=== PATIENT | male | born 1970 | race Caucasian/White ===

== ENCOUNTER 2016-12-01 12:23 | Emergency (ER) | payer MEDICAID ==
[~2016-12-01] VITALS: Ht 177.8 cm; Wt 72.6 kg
[2016-12-01 12:37] VITALS: BP 134/91
== END 2016-12-01 14:51 | disposition left against medical advice (07) ==
LOC: ER 12:25
DX: R10.9 Unspecified abdominal pain (principal); R11.2 Nausea with vomiting, unspecified; Z53.21 Procedure and treatment not carried out due to patient leaving prior to being seen by health care provider

== ENCOUNTER 2017-03-27 08:03 | Emergency (ER) | payer MEDICAID ==
[~2017-03-27] VITALS: Ht 175.3 cm; Wt 90.7 kg
[2017-03-27] MEDS ORDERED: SODIUM CHLORIDE 0.9% 1,000 ML IV ONE (08:17)
[2017-03-27] MEDS ORDERED: CLINDAMYCIN 900MG IV 50 ML IV ONE (08:30)
[2017-03-27 08:39] LABS: Basophils # (auto) 0 uL; Basophils % (auto) 0.1 % (0.0-2.0); Eosinophils # (auto) 0 uL; Eosinophils % (auto) 0.2 % (0.0-7.0); Hematocrit 40.2 % (41.0-53.0); Hemoglobin 13.5 g/dL (13.5-17.5); Lymphocytes # (auto) 0.9 uL; Lymphocytes % (auto) 3.8 % (10.0-50.0); Mean Corpuscular Hemoglobin 30.7 pg (28.0-32.0); Mean Corpuscular Hgb Conc. 33.5 g/dL (32.0-36.0); Mean Corpuscular Volume 91.7 fL (80.0-100.0); Mean Platelet Volume 7.7 fL (6.9-10.8); Monocytes # (auto) 1.3 uL; Monocytes % (auto) 5.7 % (0.0-12.0); Neutrophils # (auto) 21.3 uL; Neutrophils % (auto) 90.2 % (37.0-80.0); Nucleated Red Blood Cells % 0.1 %; Platelet Count (auto) 318 10^3/uL (140-450); Red Cell Distribution Width 15.4 % (11.8-14.3); White Blood Cell 23.6 10^3/uL (4.4-10.8)
[2017-03-27 08:40] VITALS: BP 105/54
[2017-03-27] MEDS: SODIUM CHLORIDE 0.9% 1,000 ML IV ONE (08:43)
[2017-03-27] MEDS: KETOROLAC TROMETH 30 MG/ML 1ML VIAL IV ONE (08:43)
[2017-03-27] MEDS: cefTRIAXone 1GM/50ML D5W 50 ML IV ONE (08:43)
[2017-03-27 09:01] LABS: BUN/Creatinine Ratio 24.1; Bilirubin, Total 1.2 mg/dL (0.2-1.0); Potassium 3.3 mmol/L (3.5-5.1); Total Protein 8.6 g/dL (6.4-8.2)
== END 2017-03-27 08:45 | disposition left against medical advice (07) ==
LOC: ER 08:03 → EDBD 08:03 → ER 08:45
DX: M54.5 Low back pain (principal); G89.29 Other chronic pain; L03.113 Cellulitis of right upper limb; Z59.0 Homelessness; F17.210 Nicotine dependence, cigarettes, uncomplicated
CPT/HCPCS: 36415; 80053; 85025; 87040; 87077; 87147; 87186; 96365; 96375; J0696; J1885; J3490

== ENCOUNTER 2017-06-02 12:01 | Emergency (ER) | payer MEDICAID ==
[~2017-06-02] VITALS: Ht 175.3 cm; Wt 67.1 kg
[2017-06-02 13:26] VITALS: BP 124/77
[2017-06-02] MEDS ORDERED: KETOROLAC TROMETH 60MG/2ML VIAL IM ONE (13:45)
== END 2017-06-02 14:20 | disposition home or self-care (01) ==
LOC: EDBD 12:01 → ER 12:01
DX: S80.02XA Contusion of left knee, initial encounter (principal); F17.210 Nicotine dependence, cigarettes, uncomplicated; W19.XXXA Unspecified fall, initial encounter; Y93.89 Activity, other specified; Y92.89 Other specified places as the place of occurrence of the external cause; Y99.8 Other external cause status; Z88.0 Allergy status to penicillin; Z88.1 Allergy status to other antibiotic agents
CPT/HCPCS: 96372; 99283; J1885

== ENCOUNTER 2017-06-20 21:15 | Emergency (ER) | payer MEDICAID ==
[~2017-06-20] VITALS: Ht 175.3 cm; Wt 74.8 kg
[2017-06-20 22:26] LABS: Albumin 2.1 g/dL (3.4-5.0); Calcium 8.2 mg/dL (8.5-10.1)
[2017-06-20 22:29] LABS: Bilirubin, Total 0.3 mg/dL (0.2-1.0); Total Protein 8.2 g/dL (6.4-8.2)
[2017-06-20 22:43] LABS: Potassium 2.6 mmol/L (3.5-5.1)
[2017-06-20 22:58] LABS: Eosinophils # (auto) 0 uL; Platelet Count (auto) 678 10^3/uL (140-450); White Blood Cell 19.4 10^3/uL (4.4-10.8)
[2017-06-20 23:00] LABS: Basophils # (auto) 0.1 uL; Basophils % (auto) 0.5 % (0.0-2.0); Eosinophils % (auto) 0.1 % (0.0-7.0); Hematocrit 30.2 % (41.0-53.0); Hemoglobin 10.1 g/dL (13.5-17.5); Lymphocytes % (auto) 5.4 % (10.0-50.0); Mean Corpuscular Hgb Conc. 33.5 g/dL (32.0-36.0); Mean Corpuscular Volume 83.4 fL (80.0-100.0); Monocytes # (auto) 1.4 uL; Monocytes % (auto) 7.3 % (0.0-12.0); Neutrophils # (auto) 16.8 uL; Neutrophils % (auto) 86.7 % (37.0-80.0); Red Blood Cells 3.62 10^6/uL (4.5-5.90)
[2017-06-20 23:19] LABS: Red Cell Distribution Width 21.6 % (11.8-14.3)
[2017-06-21] MEDS ORDERED: ACETAMINOPHEN 325 MG TAB PO ONE (03:15)
[2017-06-21] MEDS ORDERED: SODIUM CHLORIDE 0.9% 500 ML IV ONE (03:30)
[2017-06-21] MEDS ORDERED: SODIUM CHLORIDE 0.9% 1,000 ML IV ONE (03:45)
[2017-06-21] MEDS ORDERED: HYDROcodone-ACET 5/325MG TAB PO ONE (03:45)
[2017-06-21] MEDS ORDERED: POTASSIUM CHL 20 Meq TABLET PO ONE (04:00)
[2017-06-21] MEDS ORDERED: cefTRIAXone 1GM/10ml IVPUSH 10 ML IV ONE (07:15)
[2017-06-21] MEDS ORDERED: VANCOMYCIN 1GM/250ML 250 ML IV ONE (07:15)
[2017-06-21] MEDS ORDERED: HYDROmorphone HCL 2 MG/ML VL IV ONE (08:15)
[2017-06-21] MEDS ORDERED: ONDANSETRON HCL 4 MG/2 ML VIAL IV ONE (08:15)
[2017-06-21 10:20] LABS: Alcohol, Urine < 3.0 mg/dL (0-5); Amphetamine Screen, Urine POSITIVE (NEGATIVE); Barbiturate Scree,Urine NEGATIVE (NEGATIVE); Benzodiazephine Screen, Urine POSITIVE (NEGATIVE); Cannabinoid Screen, Urine NEGATIVE (NEGATIVE); Cocaine Screen, Urine NEGATIVE (NEGATIVE); Opiate Scree,Urine POSITIVE (NEGATIVE); Phencyclidine Screen, Urine NEGATIVE (NEGATIVE)
[2017-06-21 10:22] LABS: Urine Bacteria NONE SEEN /hpf (None Seen); Urine Blood 3+ /uL (Negative); Urine Budding Yeast FEW /hpf (None Seen); Urine Specific Gravity 1.017 (1.001-1.035); Urine WBC 29 /hpf (0 - 3)
[2017-06-21 12:08] VITALS: BP 148/97
== END 2017-06-21 13:15 | disposition left against medical advice (07) ==
LOC: EDBD 21:15 → ER 21:28
DX: M46.26 Osteomyelitis of vertebra, lumbar region (principal); M46.46 Discitis, unspecified, lumbar region; G89.29 Other chronic pain; F17.210 Nicotine dependence, cigarettes, uncomplicated; Z59.0 Homelessness; Z88.0 Allergy status to penicillin; Z88.1 Allergy status to other antibiotic agents
CPT/HCPCS: 36415; 71045; 72131; 80053; 80307; 81001; 85025; 87040; 87077; 87186; 96361; 96365; 96375; 99285; J1170; J2405; J3370; J7030

== ENCOUNTER 2017-10-24 19:58 | Emergency (ER) | payer MEDICAID ==
[~2017-10-24] VITALS: Ht 167.6 cm; Wt 68.0 kg
[2017-10-24 20:50] LABS: Monocytes # (auto) 0.9 uL
[2017-10-24 20:52] LABS: Basophils # (auto) 0.5 uL; Basophils % (auto) 4.5 % (0.0-2.0); Eosinophils # (auto) 0.4 uL; Eosinophils % (auto) 3.7 % (0.0-7.0); Hematocrit 26.9 % (41.0-53.0); Hemoglobin 8.8 g/dL (13.5-17.5); Lymphocytes # (auto) 2.9 uL; Mean Corpuscular Hemoglobin 24.9 pg (28.0-32.0); Mean Corpuscular Hgb Conc. 32.6 g/dL (32.0-36.0); Mean Corpuscular Volume 76.4 fL (80.0-100.0); Monocytes % (auto) 8.2 % (0.0-12.0); Neutrophils % (auto) 56.6 % (37.0-80.0); Nucleated Red Blood Cells % 0.1 %; Red Blood Cells 3.53 10^6/uL (4.5-5.90); White Blood Cell 10.6 10^3/uL (4.4-10.8)
[2017-10-24 21:00] LABS: Albumin 2.1 g/dL (3.4-5.0); BUN/Creatinine Ratio 15.5; Calcium 8.5 mg/dL (8.5-10.1)
[2017-10-24 21:05] LABS: Bilirubin, Total 0.1 mg/dL (0.2-1.0); Total Protein 9.5 g/dL (6.4-8.2)
[2017-10-24 21:10] LABS: Red Cell Distribution Width 22.1 % (11.8-14.3)
[2017-10-24 21:12] LABS: Platelet Count (auto) 1027 10^3/uL (140-450); Potassium 2.9 mmol/L (3.5-5.1)
[2017-10-24] MEDS ORDERED: POTASSIUM CHL 20 Meq TABLET PO ONE (23:15)
[2017-10-25] MEDS ORDERED: cefTRIAXone 1GM/10ml IVPUSH 10 ML IV ONE
[2017-10-25] MEDS ORDERED: VANCOMYCIN 1GM/250ML 250 ML IV ONE
[2017-10-25] MEDS ORDERED: SODIUM CHLORIDE 0.9% 1,000 ML IV ONE (00:15)
[2017-10-25] MEDS ORDERED: ONDANSETRON HCL 4 MG/2 ML VIAL IV ONE (01:15)
[2017-10-25] MEDS ORDERED: MORPHINE SULFATE 4 MG/ML SYR/VIAL IV ONE (01:15)
[2017-10-25] MEDS ORDERED: PROMETHAZINE HCL 25 MG/ML 1ML ONE (02:09)
[2017-10-25] MEDS ORDERED: PROMETHAZINE HCL 25 MG/ML 1ML IV ONE (02:30)
[2017-10-25 03:09] VITALS: BP 130/82
== END 2017-10-25 08:02 | disposition home or self-care (01) ==
LOC: ER 19:58 → EDUNIT# 19:58 → EDBD 19:58 → ER 10-25 06:26
DX: M54.5 Low back pain (principal); M86.10 Other acute osteomyelitis, unspecified site; F17.210 Nicotine dependence, cigarettes, uncomplicated; L02.212 Cutaneous abscess of back [any part, except buttock and flank]; Z59.0 Homelessness; Z86.14 Personal history of Methicillin resistant Staphylococcus aureus infection; Z88.0 Allergy status to penicillin; Z88.1 Allergy status to other antibiotic agents
CPT/HCPCS: 36415; 72131; 80053; 85025; 96365; 96366; 96375; 99285; J2270; J2550; J3370; J7030